=== PATIENT | male | born 1995 | race Caucasian/White ===

== ENCOUNTER → 2018-01-31 | Outpatient (CLI) | payer OTHER ==
[~2018-01-31] MED LIST: BENZ-13 PO; LEVO500T2 PO
--- NOTE | 2018-01-31 19:23 | Diagnostic Imaging Report ---
Ultrasound of the left breast. INDICATION: Left breast pain. There are no prior studies available for comparison. FINDINGS: By history, the patient has soft tissue edema of the retroareolar region on the left. The ultrasound examination of this area failed to show any discrete solid or cystic mass. However, the fibroglandular tissue in the retroareolar region is more prominent than on the right. I suspect that this appearance is secondary to gynecomastia. Clinical followup is recommended. IMPRESSION: The asymmetry of the fibroglandular tissue on the left compared to the right is most likely due to gynecomastia. Clinical followup is recommended. ACR BI-RADS Category 2: Benign findings. Dictated by: Dictated on workstation # [id number]
== END ==
LOC: RAD 13:56
PROVIDERS: ATTEND Nurse Practitioner Family
DX: N60.32 Fibrosclerosis of left breast (principal)
CPT/HCPCS: 76642